=== PATIENT | male | born 1965 | race African-American/Black ===

== ENCOUNTER 2024-09-01 18:16 | Emergency (ER) | payer MEDICAID, SELFPAY ==
[~2024-09-01] VITALS: Ht 188 cm; Wt 143.2 kg
[~2024-09-01 18:16] MED LIST: DOXY1TAB2; SULF400T11; [UNRECOGNIZED DRUG - CODE]
--- NOTE | 2024-09-01 18:38 | ED.PDOC ---
Back pain HPI HPI Comments Pt presents to the ER with a C/C of right 3rd digit injury. Pt states he "jammed" finger approx. 1 week ago. Swelling and discoloration noted to digit. Pt also reports right upper mid back pain that started approx. 1 week ago, denies any injury to back denies any other symptoms. Denies numbness, weakness or any other known injury. 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 09/01/24 Cefdinir (Cefdinir) 300 Mg Cap, 1 CAP PO BID for 7 Days, #14 CAP Prov:MOISES RICHEY DOBBY LOOM CHAIN PEGGER 09/01/24 Reported Medications Tetracycline Base (Tetracycline) Pow 01/13/10 Sulfamethoxazole-Trimethoprim (Bactrim) 1 Tab Tab 01/11/10 Doxycycline (Monohydrate) (Adoxa Maciel ) 1 Mg/100 Mg Tab 01/11/10 Information Source: Patient Past Medical History PAST MEDICAL HISTORY: Denies Surgical History: Denies all surgeries Family History Family History: Unknown Social History Smoker: Non-Smoker Alcohol: Denies ETOH Use Drugs: Denies Drug Use Constitutional: denies: chills, diaphoresis, fatigue, fever, malaise, sweats, weakness, others EENTM: denies: blurred vision, double vision, ear bleeding, ear discharge, ear drainage, ear pain, ear ringing, eye pain, eye redness, hearing loss, mouth pain, mouth swelling, nasal discharge, nose bleeding, nose congestion, nose pain, photophobia, tearing, throat pain, throat swelling, voice changes, others Respiratory: denies: cough, hemoptysis, orthopnea, SOB at rest, shortness of breath, SOB with excertion, stridor, wheezing, others Cardiovascular: denies: chest pain, dizzy spells, diaphoresis, Dyspnea on exertion, edema, irregular heart beat, left arm pain, lightheadedness, palpitations, PND, syncope, others Gastrointestinal: denies: abdomen distended, abdominal pain, blood streaked bowels, constipated, diarrhea, dysphagia, difficulty swallowing, hematemesis, melena, nausea, poor appetite, poor fluid intake, rectal bleeding, rectal pain, vomiting, others Genitourinary: denies: burning, dysuria, flank pain, frequency, hematuria, incontinence, penile discharge, penile sore, pain, testicle pain, testicle swelling, urgency, others Neurological: denies: dizziness, fainting, headache, left sided numbness, left sided weakness, numbness, paresthesia, pre-existing deficit, right sided numbness, right sided weakness, seizure, speech problems, tingling, tremors, weakness, others Musculoskeletal: reports: back pain, others (Right hand 3rd digit pain and swelling); denies: gout, joint pain, joint swelling, muscle pain, muscle stiffness, neck pain Integumetry: denies: bruises, change in color, change in hair/nails, dryness, laceration, lesions, lumps, rash, wounds, others Allergic/Immunocompromised: denies: Difficulty Healing, Frequent Infections, Hives, Itching, others Hematologic/Lymphatic: denies: anemia, blood clots, easy bleeding, easy bruising, swollen glands, others Endocrine: denies: excessive hunger, excessive sweating, excessive thirst, excessive urination, flushing, intolerance to cold, intolerance to heat, unexplained weight gain, unexplained weight loss, others Psychiatric: denies: anxiety, bipolar disorder, depression, hopeless, panic disorder, schizophrenia, sleepless, suicidal, others Physical Exam General Appearance: No Apparent Distress, Normal HEENT: Pharynx Normal Neck: Full Range of Motion, Non-Tender Respiratory: Lungs Clear, No Respiratory Distress, Normal Breath Sounds Cardiovascular: No Murmur, Normal Peripheral Pulses, Regular Rate/Rhythm Breast Exam: Deferred Gastrointestinal: Non Tender, Soft, Other (NEGATIVE CVA TENDERNESS) Genitalia: Deferred Pelvic: Deferred Rectal: Deferred Extremities: Normal capillary refill, Normal inspection, Normal range of motion, Non-tender, No pedal edema Musculoskeletal : Location: Right Extremity Location: Ankle, Finger 3 (Moderate tenderness and edema noted discoloration ecchymosis no noted abrasions, lacerations or open lesions. Prominence or angulation. Refill less than 3 seconds. 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 Was a procedure done?: No Back Pain Differential Dx Differential Diagnosis: Fracture, Musculoskeletal Pain X-Ray, Labs, Meds, VS Vital Signs Date Time Temp Pulse Resp B/P (MAP) Pulse Ox O2 Delivery O2 Flow Rate FiO2 09/01/24 20:59 97.7 81 17 149/74 (99) 97 97.7 09/01/24 19:00 93 18 93 Room Air 09/01/24 19:00 98.8 93 18 169/77 (107) 97 98.8 09/01/24 18:38 98.8 93 18 145/62 (89) 97 Lab Test 09/01/24 20:00 Range/Units Urine Color Light-yellow Yellow Urine Clarity Clear Clear Urine pH 5.0 5.0-9.0 Urine Specific [place] 1.012 1.001-1.035 Urine Protein Negative Negative Urine Ketones Negative Negative Urine Blood Negative Negative /uL Urine Nitrite Negative Negative Urine Bilirubin Negative Negative Urine Urobilinogen Normal Negative mg/dL Urine Leukocyte Esterase Negative Negative /uL Urine RBC None seen 0 - 3 /hpf Urine Microscopic WBC < 1 0-3 /HPF Urine Squamous Epithelial Cells None seen <5 /hpf Urine Bacteria None seen None Seen /hpf Urine Glucose Normal Normal mg/dL Current Medications Medications (Trade) Dose Ordered Sig/Last Route Start Time Stop Time Status Last Admin Ketorolac Tromethamine (Toradol Injection) 60 mg ONCE ONCE IM 09/01/24 20:00 09/01/24 20:01 DC 09/01/24 19:55 X-Ray, Labs, Meds, VS Comment RIGHT HAND MIDDLE FINGER X-RAY NEGATIVE FOR ACUTE FINDINGS OR OSSEOUS LESIONS. WE WILL SCRIPT PROPHYLACTIC ANTIBIOTICS. AUGMENTIN TWICE DAILY X7 DAYS. ADVISED ICE DISCUSSED SPLINT. FOLLOW UP WITH YOUR PCP IN 2-3 DAYS NECESSARY CONSIDER FURTHER IMAGING IF SYMPTOMS PERSIST. RETURN PRECAUTIONS DISCUSSED PATIENT INDICATES UNDERSTANDING AND AGREES WITH DISCHARGE PLAN OF CARE. PATIENT WAS CONCERNED OF KIDNEY INFECTION. RIGHT THORACIC BACK PAIN. UA NEGATIVE FOR INFECTION, OR BLOOD. Time of 1ST Reevaluation: 19:44 Reevaluation 1ST: Improved Patient Education/Counseling: Diagnosis, Treatment, Prognosis, Need For Follow Up Family Education/Counseling: No Family Present Departure 1 Departure Time of Disposition: 19:44 Impression: Primary Impression: Injury of finger of right hand Qualified Codes: S69.91XA - Unspecified injury of right wrist, hand and finger(s), initial encounter Additional Impression: Strain of thoracic back region Disposition: 01 HOME / SELF CARE / HOMELESS Condition: Stable e-Prescriptions Ibuprofen (Ibuprofen) 800 Mg Tab 1 TAB PO TID PRN for 5 Days, #15 TAB Prov: MOISES RICHEY 09/01/24 Cefdinir (Cefdinir) 300 Mg Cap 1 CAP PO BID for 7 Days, #14 CAP Prov: MOISES RICHEY 09/01/24 Discharged With: Self Critical Care Note Critical Care Time?: No Stability Stability form required: MOISES Lee Sep 01, 2024 18:38
--- NOTE | 2024-09-01 19:39 | DVH ---
EXAMINATION: 4 views of the right hand CLINICAL HISTORY: third digit injury/pain/swelling COMPARISON: None Findings and impression: No grossly displaced fractures, dislocations or bony destructive changes are evident on the provided views. If the patient has continued symptoms clinically suspicious for radiographically occult fracture, fol low-up radiographs could be obtained in 7-10 days time.
[2024-09-01] MEDS: KETOROLAC TROMETH 60MG/2ML VIAL IM ONE (19:55)
[2024-09-01] MEDS ORDERED: CEFD300C2 PO (20:42)
[2024-09-01] MEDS ORDERED: IBUP-1456 PO (20:42)
[2024-09-01 20:59] VITALS: BP 149/74; PULSE 81; RESP 17; TEMP 97.7; O2SAT 97
[2024-09-01 20:59] LABS: Urine Bacteria None Seen /hpf (None Seen)
[2024-09-01 21:12] LABS: Urine Blood Negative /uL (Negative); Urine Clarity Clear (Clear); Urine Color Light-Yellow (Yellow); Urine Protein, UAD Negative (Negative); Urine Specific Gravity 1.012 (1.001-1.035); Urine Squamous Epithelial Cell None Seen /hpf (<5); Urine Urobilinogen Normal (Negative); Urine WBC < 1 /HPF (0-3)
== END 2024-09-01 21:23 | disposition home or self-care (01) ==
LOC: ER 18:27
DX: S29.012A Strain of muscle and tendon of back wall of thorax, initial encounter (principal); S69.91XA Unspecified injury of right wrist, hand and finger(s), initial encounter; Z79.899 Other long term (current) drug therapy; W23.0XXA Caught, crushed, jammed, or pinched between moving objects, initial encounter; Y93.89 Activity, other specified; Y92.89 Other specified places as the place of occurrence of the external cause; Y99.8 Other external cause status
CPT/HCPCS: 73130; 81001; 96372; 99284; J1885